=== PATIENT | female | born 1950 | race Caucasian/White ===

== ENCOUNTER → 2018-01-23 | Outpatient (CLI) | payer OTHER ==
--- NOTE | 2018-01-23 12:35 | DIAGNOSTIC IMAGING REPORT ---
R HAND MIN 3 VIEWS ROUTINE CLINICAL HISTORY: PAIN FALL R/O FRACTURE trauma. Pain. COMPARISON: None. DISCUSSION: The bones and joint spaces appear intact. There is no evidence of fracture, dislocation or bony disease. 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 Mild periarticular osteopenia. No well-defined evidence for fracture. IMPRESSION: No acute bony abnormality. Moderate degenerative change. The above report was generated using voice recognition software. It may contain grammatical, syntax or spelling errors. Electronically signed by: Francisco Rodríguez M.D. 01/23/2018 12:33 PM Dictated Date/Time: 01/23/2018 12:31 PM
== END | disposition home or self-care (01) ==
LOC: C.RAD1850 12:15
PROVIDERS: ATTEND Nurse Practitioner
DX: M19.041 Primary osteoarthritis, right hand (principal)